=== PATIENT | male | born 1955 | race Caucasian/White ===

== ENCOUNTER 2017-12-17 11:38 | Day surgery (SDC) | payer MEDICARE, OTHER ==
[2017-12-15 13:43] LABS: ALBUMIN 3.8 g/dL (3.4-5.0); ANION GAP 8 mmol/L (5-15); CALCIUM 8.8 mg/dL (8.5-10.1); CHLORIDE 102 mmol/L (98-107)
[2017-12-15 13:46] LABS: ALANINE AMINOTRANSFERASE 43 U/L (12-78); ALKALINE PHOSPHATASE 90 U/L (45-117); BILIRUBIN,TOTAL 0.6 mg/dL (0.2-1.0); CREATININE 1.24 mg/dL (0.7-1.3); TOTAL PROTEIN 7.5 g/dL (6.4-8.2)
[~2017-12-17] VITALS: Ht 195.6 cm; Wt 100.2 kg
[~2017-12-17 11:38] MED LIST: ATOR10TA PO; BUPIVACAINE/PF 0.5% ONE; CHOL10002 PO; DIAZ5TAB PO; HYDR-3237 PO; HYDR-3241 PO; HYDR25TA6 PO; SENN-31 PO; TAMS-11 PO; VALS320T2 PO
[2017-12-17] MEDS ORDERED: LACTATED RINGERS 1,000 ML IV SCH (12:18)
[2017-12-17] MEDS ORDERED: EPHEDRINE 50 MG/ML, 1ML ONE (12:46)
[2017-12-17] MEDS ORDERED: CEFAZOLIN 1,000 MG ONE (12:46)
[2017-12-17] MEDS ORDERED: FENTANYL PF 250 MCG/5ML ONE (12:46)
[2017-12-17] MEDS ORDERED: LIDOCAINE GEL 2%, 5ML ONE (12:48)
[2017-12-17] MEDS ORDERED: LIDOCAINE-MPF 2% ,5ML ONE (13:01)
[2017-12-17] MEDS ORDERED: PROPOFOL 10 MG/ML, 20ML ONE (13:01)
[2017-12-17] MEDS ORDERED: DEXAMETHASONE 4 MG/ML, 1ML ONE ×2 (13:13)
[2017-12-17] MEDS ORDERED: ONDANSETRON 2MG/ML, 2ML ONE (13:13)
[2017-12-17] MEDS ORDERED: EPINEPHRINE 1 MG/ML, 1ML INFIL ONE (13:23)
[2017-12-17] MEDS ORDERED: HYDROcodone/APAP 7.5-325MG/15ML UDC ONE (13:42)
[2017-12-17] MEDS ORDERED: FENTANYL PF 100 MCG/2ML ONE (13:42)
[2017-12-17] MEDS: FENTANYL PF 100 MCG/2ML IV PRN ×2 (13:45→14:01)
[2017-12-17] MEDS ORDERED: HYDROcodone/APAP 7.5-325MG/15ML UDC PO PRN (14:00)
[2017-12-17] MEDS ORDERED: ONDANSETRON 2MG/ML, 2ML IVPush PRN (14:00)
[2017-12-17] MEDS ORDERED: MEPERIDINE/PF 25MG/0.5ML IVPush PRN (14:00)
[2017-12-17] MEDS ORDERED: morphine SULFATE 10 MG/ML, 1ML IV PRN (14:00)
[2017-12-17] MEDS ORDERED: ACETAMINOPHEN 325 MG TABLET PO PRN (14:00)
== END 2017-12-17 17:10 ==
LOC: STAR 11:38 → OUT 17:10
PROVIDERS: ATTEND Surgery
DX: K40.90 Unilateral inguinal hernia, without obstruction or gangrene, not specified as recurrent (principal); E78.00 Pure hypercholesterolemia, unspecified; Z79.899 Other long term (current) drug therapy; Z88.5 Allergy status to narcotic agent; Z88.8 Allergy status to other drugs, medicaments and biological substances; I10 Essential (primary) hypertension; E78.4 Other hyperlipidemia; Z88.6 Allergy status to analgesic agent
CPT/HCPCS: 36415; 49505; 80053; C1781; J0171; J0690; J1100; J2405; J2704; J3010; J3490; J7120; 93005

== ENCOUNTER → 2018-04-08 | Outpatient (CLI) | payer MEDICARE, OTHER ==
[~2018-04-08] MED LIST changes: -BUPIVACAINE/PF 0.5% ONE
== END | disposition home or self-care (01) ==
LOC: CFH 09:19
PROVIDERS: ATTEND Surgery
DX: I10 Essential (primary) hypertension (principal); E78.5 Hyperlipidemia, unspecified; Z79.899 Other long term (current) drug therapy
CPT/HCPCS: 76857